=== PATIENT | male | born 1990 | race Caucasian/White ===

== ENCOUNTER 2021-07-12 09:41 | Outpatient (CLI) | payer BC ==
[~2021-07-12] VITALS: Ht 170.2 cm; Wt 109.3 kg
[2021-07-12] MEDS ORDERED: AMLO-251 PO (13:28)
[2021-07-12] MEDS ORDERED: HYDR25TA4 PO (13:28)
[2021-07-12] MEDS ORDERED: LISI20TA26 PO (13:28)
== END 2021-07-12 14:38 | disposition home or self-care (01) ==
LOC: PREOP 09:41
PROVIDERS: ATTEND Surgery
DX: Z01.818 Encounter for other preprocedural examination (principal)

== ENCOUNTER 2021-07-15 11:05 | Day surgery (SDC) | payer BC ==
[~2021-07-15] VITALS: Ht 170.2 cm; Wt 109.3 kg
[~2021-07-15 11:05] MED LIST: AMLO-251 PO; HYDR25TA4 PO; LISI20TA26 PO
[2021-07-15] MEDS ORDERED: LACTATED RINGERS 1,000 ML IV STA (11:07)
[2021-07-15] MEDS ORDERED: LACTATED RINGERS 1,000 ML IV ONE (11:08)
[2021-07-15] MEDS ORDERED: LISI40TA9 PO (11:14)
[2021-07-15] MEDS ORDERED: ATOR10TA66 PO (11:14)
[2021-07-15 11:20] VITALS: BP 156/106
--- NOTE | 2021-07-15 12:04 | Progress Note-Pre Operative ---
Pre-Operative Progress Note H&P Reviewed The H&P was reviewed, patient examined and no changes noted. Time Seen by Provider: 12:02 Date H&P Reviewed: Jul 15, 2021 Time H&P Reviewed: 12:02 Pre-Operative Diagnosis: rectal bleed ROBERT RATLIFF DO Jul 15, 2021 12:04
[2021-07-15] MEDS ORDERED: MIDAZOLAM 2 MG/2 ML (VERSED) VIAL ONE (12:50)
[2021-07-15] MEDS ORDERED: PROPOFOL INJECTION 50 ML IV ONE (12:50)
[2021-07-15 13:15] VITALS: BP 117/70
[2021-07-15 13:18] VITALS: BP 117/70
--- NOTE | 2021-07-15 13:18 | Progress Note-Post Operative ---
Post-Operative Progess Note Surgeon (s)/Application Consultant (s) Surgeon ROBERT RATLIFF DO Application Consultant: ROLAND MejiaII Pre-Operative Diagnosis rectal bleed Post-Operative Diagnosis AVM Polyp diverticula int hemorrhoids Procedure & Operative Findings Date of Procedure 07/15/21 Procedure Performed/Findings Colonoscopy with hot bx PROCEDURE NOTE: After informed consent was obtained, the patient was brought to the endoscopy suite, placed in bed in left lateral decubitus position. He was administered IV sedation by the [employer] who then monitored his vitals the entire time, heart rate, blood pressure and pulse ox and the scope was inserted, pushed all the way to about 140 cm and pushed into the cecum, took a picture of appendiceal orifice and then slowly withdrew the scope insufflating to look circumferentially at the laird starting in the cecum. Just outside the cecum saw a diverticula and took a picture of it. Then in the ascending colon I found an AVM and took a picture; could have been the cause of his bleeding episode. Up to the hepatic flexure, then down the transverse colon to the splenic flexure, into the descending colon and down into the sigmoid colon. Found a small polyp here, took a picture and then did a hot biopsy. Finally into the rectal vault and retroflexed the scope. Took picture of very minimal internal hemorrhoids. The patient tolerated the procedure. He was recovered in endoscopy suite. Anesthesia Type IV sedation by [employer] Estimated Blood Loss Estimated blood loss (mL): scant Specimens/Packing Specimens Removed sigmoid colon polyp ROBERT RATLIFF DO Jul 15, 2021 13:18
--- NOTE | 2021-07-15 13:19 | Endoscopy Discharge Instruct ---
Endo Procedure/Findings Findings 1.: Polyp 2.: Diverticulosis 3.: Vascular Ectasias 4.: Internal Hemorrhoids Discharge Instructions - Activity: You might feel a little sleepy until tomorrow. This is due to the medicine you received to relax you. Until tomorrow, you should: NOT drive a car, operate machinery or power tools. NOT drink any alcoholic beverages. NOT make any important decisions or sign importortant papers. Do not return to work until tomorrow, unless otherwise instructed. Resume previous activities tomorrow. Diet: Start by taking liquids. If you tolerate liquids, advance to solid food. 1.: Colonscopy in 5 years Notify Physician - If you experience excessive bleeding, unusual abdominal pain, fever, or chest pain, contact your doctor immediately. ROBERT RATLIFF DO Jul 15, 2021 13:19
--- NOTE | 2021-07-15 13:20 | Anesthesia-General Post-Op ---
MAC Patient Condition Mental Status/LOC: Same as Preop Cardiovascular: Satisfactory Nausea/Vomiting: Absent Respiratory: Satisfactory Pain: Controlled Complications: Absent Post Op Complications Complications None Follow Up Care/Instructions Patient Instructions None needed. Anesthesiology Discharge Order Discharge Order Patient is doing well, no complaints, stable vital signs, no apparent adverse anesthesia problems. No complications reported per nursing. MANSI DE LA PAZ CRNA Jul 15, 2021 13:20
[2021-07-15 13:35] VITALS: BP 139/93
== END 2021-07-15 13:47 | disposition home or self-care (01) ==
LOC: ENDO 11:05
PROVIDERS: ATTEND Surgery
DX: D12.5 Benign neoplasm of sigmoid colon (principal); K57.30 Diverticulosis of large intestine without perforation or abscess without bleeding; K64.8 Other hemorrhoids; Q27.39 Arteriovenous malformation, other site
CPT/HCPCS: 88305